=== PATIENT | female | born 1985 | race Two or more races ===

== ENCOUNTER 2016-09-17 21:40 | Emergency (ER) | payer SELFPAY ==
[~2016-09-17] VITALS: Ht 165.1 cm; Wt 63.5 kg
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
[2016-09-17 22:29] LABS: BASOPHILS % (AUTO) 0.9 % (0.0-2.0); EOSINOPHILS % (AUTO) 0.7 % (0.0-3.0); LYMPHOCYTES % (AUTO) 24.7 % (20.0-45.0); MEAN CORPUSCULAR HGB CONC 32.4 G/DL (32.0-36.0); MEAN CORPUSCULAR VOLUME 86 FL (80-99); MEAN PLATELET VOLUME 6.8 FL (6.5-10.1); MONOCYTES % (AUTO) 5.9 % (1.0-10.0); NEUTROPHILS % (AUTO) 67.7 % (45.0-75.0); PLATELET COUNT 200 K/UL (150-450); RED BLOOD COUNT 4.42 M/UL (4.20-5.40); RED CELL DISTRIBUTION WIDTH 12.2 % (11.6-14.8); WHITE BLOOD COUNT 6.5 K/UL (4.8-10.8)
[2016-09-17 22:38] LABS: ACETAMINOPHEN < 10 ug/mL (10-30); ALCOHOL < 10 mg/dL; ANION GAP 13 (5-15); CALCIUM 9.2 mg/dL (8.6-10.2); CARBON DIOXIDE 28 mEQ/L (20-30); CHLORIDE 98 mEQ/L (98-107); GLOMERULAR FILTRATION RATE > 60 mL/min (>60); HEMOLYSIS 8; POTASSIUM 4.3 mEQ/L (3.4-4.9); SODIUM 139 mEQ/L (135-145)
[2016-09-17 22:45] VITALS: BP 103/62
[2016-09-18 00:35] LABS: APPEARANCE,URINE CLEAR; KETONES,URINE NEGATIVE (NEGATIVE); LEUKOCYTE ESTERASE ,URINE 1+ (NEGATIVE); NITRITE,URINE NEGATIVE (NEGATIVE); PH,URINE 6 (4.5-8.0); PROTEIN,URINE 1+ (NEGATIVE); UROBILINOGEN,URINE NORMAL MG/DL (0.0-1.0)
[2016-09-18 00:47] VITALS: BP 105/63
[2016-09-18 01:04] LABS: BACTERIA,URINE OCCASIONAL /HPF; HYALINE CASTS, URINE 0-2 /LPF; RBC,URINE 0-2 /HPF (0 - 2); SQUAMOUS EPITHELIAL CELL,UR MODERATE /LPF (NONE/OCC); WBC,URINE 0-2 /HPF (0 - 2)
[2016-09-18] MEDS ORDERED: Ammonia Inhalant 0.33mL 1 Amp INH ONE (02:08)
[2016-09-18 02:15] VITALS: BP 134/87
[2016-09-18 04:30] VITALS: BP 103/57
[2016-09-18 04:31] VITALS: BP 103/57
== END 2016-09-18 04:32 | disposition home or self-care (01) ==
LOC: EDBD 21:40 → EMR 21:46 → EDBD 21:46 → EMR 09-18 04:32
DX: T50.901A Poisoning by unspecified drugs, medicaments and biological substances, accidental (unintentional), initial encounter (principal); Y92.9 Unspecified place or not applicable; F15.10 Other stimulant abuse, uncomplicated; R41.82 Altered mental status, unspecified
CPT/HCPCS: 36415; 80048; 80300; 81001; 81025; 85025; 99284; G0480; 80329

== ENCOUNTER 2018-06-16 08:07 | Inpatient (IN) | payer SELFPAY ==
[~2018-06-16] VITALS: Ht 157.5 cm; Wt 68.7 kg
[2018-06-16 08:07] VITALS: BP 129/89
[2018-06-16] MEDS ORDERED: cefTRIAXone 1 GM in NS 55 ML IV SCH (08:15)
[2018-06-16] MEDS ORDERED: Azithromycin 250mg tab PO ONE (08:15)
[2018-06-16 08:44] LABS: HEMATOCRIT 40.9 % (37.0-47.0); HEMOGLOBIN 13.6 G/DL (12.0-16.0); MEAN CORPUSCULAR VOLUME 83 FL (80-99); PLATELET COUNT 253 K/UL (150-450); RED CELL DISTRIBUTION WIDTH 11.5 % (11.6-14.8); WHITE BLOOD COUNT 15.2 K/UL (4.8-10.8)
[2018-06-16 08:48] LABS: APPEARANCE,URINE CLEAR; BILIRUBIN, URINE NEGATIVE (NEGATIVE); GLUCOSE, URINE (UA) NEGATIVE (NEGATIVE); KETONES,URINE NEGATIVE (NEGATIVE); LEUKOCYTE ESTERASE ,URINE NEGATIVE (NEGATIVE); NITRITE,URINE NEGATIVE (NEGATIVE); PH,URINE 5 (4.5-8.0); PROTEIN,URINE NEGATIVE (NEGATIVE); UROBILINOGEN,URINE NORMAL MG/DL (0.0-1.0)
[2018-06-16 08:57] LABS: ANION GAP 7 mmol/L (5-15); BLOOD UREA NITROGEN 11 mg/dL (7-18); CARBON DIOXIDE 29 MMOL/L (21-32); CHLORIDE 100 MMOL/L (98-107); CREATININE 0.8 MG/DL (0.55-1.30); POTASSIUM 3.4 MMOL/L (3.5-5.1); SODIUM 136 MMOL/L (136-145)
[2018-06-16 09:00] LABS: COLOR,URINE YELLOW
[2018-06-16] MEDS ORDERED: Ketorolac 30mg Inj IV ONE (09:00)
[2018-06-16 09:12] LABS: ALANINE AMINOTRANSFERASE 10 U/L (12-78); ALBUMIN 3.6 G/DL (3.4-5.0); ALBUMIN/GLOBULIN RATIO 0.8 (1.0-2.7); ALKALINE PHOSPHATASE 95 U/L (46-116); ASPARTATE AMINO TRANSFERASE 11 U/L (15-37)
--- NOTE | 2018-06-16 11:27 | Diagnostic Imaging Report ---
Indication: There is infiltrate in the right lung base. The left lung, bilateral pleural spaces are clear. Technique: One view of the chest Comparison: none Findings: There is infiltrate at the right lung base. Bilateral pleural spaces, left lung are clear. Impression: Positive for right basilar infiltrate, likely pneumonia Findings discussed by phone with Dr. Yuan in the emergency room at the time of interpretation
[2018-06-16 11:44] VITALS: BP 102/62
[2018-06-16 13:04] VITALS: BP 129/69
--- NOTE | 2018-06-16 13:06 | Emergency Room Report ---
History of Present Illness General Chief Complaint: Pain Source: Patient, EMS Present Illness HPI This patient is brought in by EMS. She complains of chest pain for the past 3 days. She has also had cough with sputum production. She states the pain is worse with deep breathing. She has subjective fever and chills. She denies abdominal pain. She denies nausea or vomiting. She has no other complaints. Allergies: Coded Allergies: No Known Allergies (Unverified , 09/17/16) Patient History Past Medical History: none Social History: Denies: smoking, alcohol use, drug use Last Menstrual Period: UNK Reviewed Nursing Documentation: PMH: Agreed; PSxH: Agreed Nursing Documentation-PMH Past Medical History: No Stated History Review of Systems All Other Systems: negative except mentioned in HPI Physical Exam Vital Signs Date Time Temp Pulse Resp B/P (MAP) Pulse Ox O2 Delivery O2 Flow Rate FiO2 06/16/18 07:56 99.8 92 19 129/89 98 Room Air 99.9 Sp02 EP Interpretation: reviewed, normal General Appearance: no apparent distress, alert, GCS 15, non-toxic Head: normocephalic, atraumatic Eyes: bilateral eye normal inspection, bilateral eye PERRL ENT: hearing grossly normal, normal pharynx, no angioedema, normal voice Neck: full range of motion, supple/symm/no masses Respiratory: chest non-tender, lungs clear, normal breath sounds, no respiratory distress, no retraction, no accessory muscle use, rhonchi, speaking full sentences Cardiovascular #1: regular rate, rhythm, no edema Gastrointestinal: normal bowel sounds, non tender, soft, non-distended, no guarding, no rebound Rectal: deferred Musculoskeletal: back normal, gait/station normal, normal range of motion, non- tender Neurologic: alert, oriented x3, responsive, motor strength/tone normal, sensory intact, speech normal Psychiatric: judgement/insight normal, memory normal, mood/affect normal, no suicidal/homicidal ideation Skin: normal color, no rash, warm/dry, well hydrated Medical Decision Making Diagnostic Impression: Primary Impression: Pneumonia ER Course This patient has pneumonia. She is given broad-spectrum antibiotics. She also has a lot of chest pain which is likely secondary to significant pneumonia found on her chest x-ray. She will be admitted for further monitoring, IV antibiotics and evaluation and treatment as an inpatient. Laboratory Tests Test 06/16/18 08:20 White Blood Count 15.2 K/UL (4.8-10.8) H Red Blood Count 4.90 M/UL (4.20-5.40) Hemoglobin 13.6 G/DL (12.0-16.0) Hematocrit 40.9 % (37.0-47.0) Mean Corpuscular Volume 83 FL (80-99) Mean Corpuscular Hemoglobin 27.7 PG (27.0-31.0) Mean Corpuscular Hemoglobin Concent 33.2 G/DL (32.0-36.0) Red Cell Distribution Width 11.5 % (11.6-14.8) L Platelet Count 253 K/UL (150-450) Mean Platelet Volume 7.5 FL (6.5-10.1) Neutrophils (%) (Auto) % (45.0-75.0) Lymphocytes (%) (Auto) % (20.0-45.0) Monocytes (%) (Auto) % (1.0-10.0) Eosinophils (%) (Auto) % (0.0-3.0) Basophils (%) (Auto) % (0.0-2.0) Differential Total Cells Counted 100 Neutrophils % (Manual) 85 % (45-75) H Lymphocytes % (Manual) 5 % (20-45) L Monocytes % (Manual) 7 % (1-10) Eosinophils % (Manual) 0 % (0-3) Basophils % (Manual) 0 % (0-2) Band Neutrophils 3 % (0-8) Platelet Estimate Adequate Platelet Morphology Normal Red Blood Cell Morphology Normal Urine Color Yellow Urine Appearance Clear Urine pH 5 (4.5-8.0) Urine Specific [place] 1.020 (1.005-1.035) Urine Protein Negative (NEGATIVE) Urine Glucose (UA) Negative (NEGATIVE) Urine Ketones Negative (NEGATIVE) Urine Blood 1+ (NEGATIVE) H Urine Nitrite Negative (NEGATIVE) Urine Bilirubin Negative (NEGATIVE) Urine Urobilinogen Normal MG/DL (0.0-1.0) Urine Leukocyte Esterase Negative (NEGATIVE) Urine RBC 0-2 /HPF (0 - 2) Urine WBC 0-2 /HPF (0 - 2) Urine Squamous Epithelial Cells Few /LPF (NONE/OCC) Urine Bacteria Few /HPF (NONE) Sodium Level 136 MMOL/L (136-145) Potassium Level 3.4 MMOL/L (3.5-5.1) L Chloride Level 100 MMOL/L (98-107) Carbon Dioxide Level 29 MMOL/L (21-32) Anion Gap 7 mmol/L (5-15) Blood Urea Nitrogen 11 mg/dL (7-18) Creatinine 0.8 MG/DL (0.55-1.30) Estimate Glomerular Filtration Rate > 60 mL/min (>60) Glucose Level 107 MG/DL (74-106) H Lactic Acid Level 0.90 mmol/L (0.4-2.0) Calcium Level 9.0 MG/DL (8.5-10.1) Total Bilirubin 1.0 MG/DL (0.2-1.0) Aspartate Amino Transferase (AST) 11 U/L (15-37) L Alanine Aminotransferase (ALT) 10 U/L (12-78) L Alkaline Phosphatase 95 U/L (46-116) Total Protein 8.1 G/DL (6.4-8.2) Albumin 3.6 G/DL (3.4-5.0) Globulin 4.5 g/dL Albumin/Globulin Ratio 0.8 (1.0-2.7) L EKG Diagnostic Results Rate: normal Rhythm: NSR ST Segments: no acute changes Rhythm Strip Diag. Results EP Interpretation: yes Rate: 80's Rhythm: NSR, no PVC's, no ectopy Chest X-Ray Diagnostic Results Chest X-Ray Diagnostic Results : Chest X-Ray Ordered: Yes # of Views/Limited/Complete: 1 View Indication: Chest Pain EP Interpretation: Yes Interpretation: other - RLL opacity Impression: Other - Pneumonia Electronically Signed by: More Last Vital Signs Date Time Temp Pulse Resp B/P (MAP) Pulse Ox O2 Delivery O2 Flow Rate FiO2 06/16/18 12:07 98.3 72 20 102/62 98 Room Air 98.3 Disposition: ADMITTED INPATIENT Condition: Serious Referrals: NOT CHOSEN SKYLAR/,REFERRING (PCP) Meghann Kennedy DO Jun 16, 2018 13:06
--- NOTE | 2018-06-16 13:12 | Cardiology Progress Note ---
Assessment/Plan Assessment/Plan The patient is seen and examined, full consult note will be dictated shortly. Objective Last 24 Hour Vital Signs Date Time Temp Pulse Resp B/P (MAP) Pulse Ox O2 Delivery O2 Flow Rate FiO2 06/16/18 13:04 97.7 83 19 129/69 (89) 100 97.7 06/16/18 12:07 98.3 72 20 102/62 98 Room Air 98.3 06/16/18 11:44 98.3 72 20 102/62 98 Room Air 98.3 06/16/18 09:47 98.3 06/16/18 09:17 99.9 06/16/18 08:07 99.9 19 129/89 98 Room Air 99.9 06/16/18 07:56 99.8 92 19 129/89 98 Room Air 99.9 Laboratory Tests Test 06/16/18 08:20 White Blood Count 15.2 K/UL (4.8-10.8) H Red Blood Count 4.90 M/UL (4.20-5.40) Hemoglobin 13.6 G/DL (12.0-16.0) Hematocrit 40.9 % (37.0-47.0) Mean Corpuscular Volume 83 FL (80-99) Mean Corpuscular Hemoglobin 27.7 PG (27.0-31.0) Mean Corpuscular Hemoglobin Concent 33.2 G/DL (32.0-36.0) Red Cell Distribution Width 11.5 % (11.6-14.8) L Platelet Count 253 K/UL (150-450) Mean Platelet Volume 7.5 FL (6.5-10.1) Neutrophils (%) (Auto) % (45.0-75.0) Lymphocytes (%) (Auto) % (20.0-45.0) Monocytes (%) (Auto) % (1.0-10.0) Eosinophils (%) (Auto) % (0.0-3.0) Basophils (%) (Auto) % (0.0-2.0) Differential Total Cells Counted 100 Neutrophils % (Manual) 85 % (45-75) H Lymphocytes % (Manual) 5 % (20-45) L Monocytes % (Manual) 7 % (1-10) Eosinophils % (Manual) 0 % (0-3) Basophils % (Manual) 0 % (0-2) Band Neutrophils 3 % (0-8) Platelet Estimate Adequate Platelet Morphology Normal Red Blood Cell Morphology Normal Urine Color Yellow Urine Appearance Clear Urine pH 5 (4.5-8.0) Urine Specific [place] 1.020 (1.005-1.035) Urine Protein Negative (NEGATIVE) Urine Glucose (UA) Negative (NEGATIVE) Urine Ketones Negative (NEGATIVE) Urine Blood 1+ (NEGATIVE) H Urine Nitrite Negative (NEGATIVE) Urine Bilirubin Negative (NEGATIVE) Urine Urobilinogen Normal MG/DL (0.0-1.0) Urine Leukocyte Esterase Negative (NEGATIVE) Urine RBC 0-2 /HPF (0 - 2) Urine WBC 0-2 /HPF (0 - 2) Urine Squamous Epithelial Cells Few /LPF (NONE/OCC) Urine Bacteria Few /HPF (NONE) Sodium Level 136 MMOL/L (136-145) Potassium Level 3.4 MMOL/L (3.5-5.1) L Chloride Level 100 MMOL/L (98-107) Carbon Dioxide Level 29 MMOL/L (21-32) Anion Gap 7 mmol/L (5-15) Blood Urea Nitrogen 11 mg/dL (7-18) Creatinine 0.8 MG/DL (0.55-1.30) Estimat Glomerular Filtration Rate > 60 mL/min (>60) Glucose Level 107 MG/DL (74-106) H Lactic Acid Level 0.90 mmol/L (0.4-2.0) Calcium Level 9.0 MG/DL (8.5-10.1) Total Bilirubin 1.0 MG/DL (0.2-1.0) Aspartate Amino Transf (AST/SGOT) 11 U/L (15-37) L Alanine Aminotransferase (ALT/SGPT) 10 U/L (12-78) L Alkaline Phosphatase 95 U/L (46-116) Total Protein 8.1 G/DL (6.4-8.2) Albumin 3.6 G/DL (3.4-5.0) Globulin 4.5 g/dL Albumin/Globulin Ratio 0.8 (1.0-2.7) L Maico Woods MD Jun 16, 2018 13:12
--- NOTE | 2018-06-16 13:51 | Consultation ---
Consult Note Assessment/Plan DICT # [id number] Gato Mccarthy MD Jun 16, 2018 13:51
--- NOTE | 2018-06-16 14:00 | Consultation ---
History of Present Illness General Date patient seen: Jun 16, 2018 Chief Complaint: Pain Present Illness HPI patient is brought in by EMS, She complains of chest pain. the pt was dozing off during the eval and was unable to provide hx. She knew the year however didn 't know the date. the pt was able to wake stated that she drinks alcohol recreationally. Denied drinking alcohol everyday, Allergies: Coded Allergies: No Known Allergies (Unverified , 09/17/16) Patient History History Provided By: Patient, Medical Record Healthcare decision maker Resuscitation status Advanced Directive on File Past Medical/Surgical History Past Medical/Surgical History: (1) Pneumonia Review of Systems Psychiatric: Reports: prior hx, anxiety, depressed feelings, emotional problems Physical Exam General Appearance: no apparent distress, lethargic Neurologic: depressed affect Last 24 Hour Vital Signs Date Time Temp Pulse Resp B/P (MAP) Pulse Ox O2 Delivery O2 Flow Rate FiO2 06/16/18 13:04 97.7 83 19 129/69 (89) 100 97.7 06/16/18 12:07 98.3 72 20 102/62 98 Room Air 98.3 06/16/18 11:44 98.3 72 20 102/62 98 Room Air 98.3 06/16/18 09:47 98.3 06/16/18 09:17 99.9 06/16/18 08:07 99.9 19 129/89 98 Room Air 99.9 06/16/18 07:56 99.8 92 19 129/89 98 Room Air 99.9 Laboratory Tests Test 06/16/18 08:20 White Blood Count 15.2 K/UL (4.8-10.8) H Red Blood Count 4.90 M/UL (4.20-5.40) Hemoglobin 13.6 G/DL (12.0-16.0) Hematocrit 40.9 % (37.0-47.0) Mean Corpuscular Volume 83 FL (80-99) Mean Corpuscular Hemoglobin 27.7 PG (27.0-31.0) Mean Corpuscular Hemoglobin Concent 33.2 G/DL (32.0-36.0) Red Cell Distribution Width 11.5 % (11.6-14.8) L Platelet Count 253 K/UL (150-450) Mean Platelet Volume 7.5 FL (6.5-10.1) Neutrophils (%) (Auto) % (45.0-75.0) Lymphocytes (%) (Auto) % (20.0-45.0) Monocytes (%) (Auto) % (1.0-10.0) Eosinophils (%) (Auto) % (0.0-3.0) Basophils (%) (Auto) % (0.0-2.0) Differential Total Cells Counted 100 Neutrophils % (Manual) 85 % (45-75) H Lymphocytes % (Manual) 5 % (20-45) L Monocytes % (Manual) 7 % (1-10) Eosinophils % (Manual) 0 % (0-3) Basophils % (Manual) 0 % (0-2) Band Neutrophils 3 % (0-8) Platelet Estimate Adequate Platelet Morphology Normal Red Blood Cell Morphology Normal Urine Color Yellow Urine Appearance Clear Urine pH 5 (4.5-8.0) Urine Specific [place] 1.020 (1.005-1.035) Urine Protein Negative (NEGATIVE) Urine Glucose (UA) Negative (NEGATIVE) Urine Ketones Negative (NEGATIVE) Urine Blood 1+ (NEGATIVE) H Urine Nitrite Negative (NEGATIVE) Urine Bilirubin Negative (NEGATIVE) Urine Urobilinogen Normal MG/DL (0.0-1.0) Urine Leukocyte Esterase Negative (NEGATIVE) Urine RBC 0-2 /HPF (0 - 2) Urine WBC 0-2 /HPF (0 - 2) Urine Squamous Epithelial Cells Few /LPF (NONE/OCC) Urine Bacteria Few /HPF (NONE) Sodium Level 136 MMOL/L (136-145) Potassium Level 3.4 MMOL/L (3.5-5.1) L Chloride Level 100 MMOL/L (98-107) Carbon Dioxide Level 29 MMOL/L (21-32) Anion Gap 7 mmol/L (5-15) Blood Urea Nitrogen 11 mg/dL (7-18) Creatinine 0.8 MG/DL (0.55-1.30) Estimat Glomerular Filtration Rate > 60 mL/min (>60) Glucose Level 107 MG/DL (74-106) H Lactic Acid Level 0.90 mmol/L (0.4-2.0) Calcium Level 9.0 MG/DL (8.5-10.1) Total Bilirubin 1.0 MG/DL (0.2-1.0) Aspartate Amino Transf (AST/SGOT) 11 U/L (15-37) L Alanine Aminotransferase (ALT/SGPT) 10 U/L (12-78) L Alkaline Phosphatase 95 U/L (46-116) Total Protein 8.1 G/DL (6.4-8.2) Albumin 3.6 G/DL (3.4-5.0) Globulin 4.5 g/dL Albumin/Globulin Ratio 0.8 (1.0-2.7) L Microbiology Date/Time Source Procedure Growth Status 06/16/18 11:45 Nasal Nares Influenza Types A,B Antigen (FABIO) - Final Complete Height (Feet): 5 Height (Inches): 2.00 Weight (Pounds): 160 Medications Current Medications Medications (Trade) Dose Ordered Sig/Philip Route PRN Reason Start Time Stop Time Status Last Admin Dose Admin Azithromycin 250 mg/Dextrose 275 ml @ 275 mls/hr Q24HRS IV 06/17/18 09:00 06/23/18 09:59 Ceftriaxone Sodium 1 gm/ Dextrose 55 ml @ 110 mls/hr Q24H IVPB 06/17/18 08:00 06/24/18 07:59 Heparin Sodium (Porcine) (Heparin 5000 units/ml) 5,000 units EVERY 12 HOURS SUBQ 06/16/18 21:00 07/16/18 20:59 Assessment/Plan Problem List: (1) Pneumonia ICD Codes: J18.9 - Pneumonia, unspecified organism SNOMED: 263825532 Status: stable Assessment/Plan encephalopathy due to toxic - no meds now -provided ro/Nataly Ojeda MD Jun 16, 2018 14:00
[2018-06-16] MEDS ORDERED: Albuterol ud Inhalation HHN PRN (14:30)
[2018-06-16 15:09] LABS: HEMATOCRIT 39.8 % (37.0-47.0); HEMOGLOBIN 13.4 G/DL (12.0-16.0); MEAN CORPUSCULAR VOLUME 84 FL (80-99); PLATELET COUNT 251 K/UL (150-450); RED BLOOD COUNT 4.75 M/UL (4.20-5.40); RED CELL DISTRIBUTION WIDTH 11.8 % (11.6-14.8); WHITE BLOOD COUNT 15.6 K/UL (4.8-10.8)
[2018-06-16 15:27] LABS: AMMONIA < 10 umol/L (11-32)
[2018-06-16 15:32] LABS: ALANINE AMINOTRANSFERASE 10 U/L (12-78); ALBUMIN 3.2 G/DL (3.4-5.0); ALBUMIN/GLOBULIN RATIO 0.8 (1.0-2.7); ALKALINE PHOSPHATASE 91 U/L (46-116); ANION GAP 10 mmol/L (5-15); ASPARTATE AMINO TRANSFERASE 10 U/L (15-37); BILIRUBIN,TOTAL 0.9 MG/DL (0.2-1.0); BLOOD UREA NITROGEN 12 mg/dL (7-18); CALCIUM 9.1 MG/DL (8.5-10.1); CARBON DIOXIDE 32 MMOL/L (21-32); CHLORIDE 98 MMOL/L (98-107); CREATININE 0.8 MG/DL (0.55-1.30); POTASSIUM 3.5 MMOL/L (3.5-5.1); SODIUM 139 MMOL/L (136-145)
[2018-06-16 20:00] VITALS: BP 95/61
[2018-06-16] MEDS: Heparin 5000 units/ml inj SUBQ SCH (21:36)
[2018-06-17] VITALS: BP 100/57
--- NOTE | 2018-06-17 01:15 | Consultation ---
DATE OF CONSULTATION: 06/16/2018 CARDIOLOGY CONSULTATION CONSULTING PHYSICIAN: Maico Woods M.D. REFERRING PHYSICIAN: Sheridan Dalton M.D. REASON FOR CONSULTATION: Management of chest pain. HISTORY OF PRESENT ILLNESS: The patient is a very unfortunate 32-year-old female, who presents to the hospital with pleuritic chest pain for about three days associated with productive cough and sputum. The patient had also subjective fever and chills. At the time of arrival to the hospital, blood pressure is 129/89, pulse of 92, respirations 19, O2 saturation was 98% on room air. The patient underwent workup in the emergency department including chest x-ray, which confirmed right lower lobe pneumonia. She was admitted to Med/Surg unit for further evaluation and management of pneumonia. Cardiology consultation was made for evaluation of chest pain. PAST MEDICAL HISTORY: None. PAST SURGICAL HISTORY: None. ALLERGIES: No known drug allergies. MEDICATIONS: List of medication showed no medication. SOCIAL HISTORY: Denies any tobacco, alcohol, or illicit drug use. FAMILY HISTORY: No premature coronary artery disease in first-degree relatives. REVIEW OF SYSTEMS: A 12-system review done and essentially negative except what was mentioned in history of present illness. PHYSICAL EXAMINATION: VITAL SIGNS: Blood pressure was 129/89, pulse of 92, respirations 19, O2 saturation 98% on room air. GENERAL: The patient is a very unfortunate 32-year-old female, in no apparent respiratory distress. Altered. HEENT: Atraumatic, normocephalic. Pupils are equal, round, and reactive to light and accommodation. Extraocular muscles intact. NECK: JVP less than 5 cm. No carotid bruit. Carotid upstrokes 2+ bilaterally. CARDIOVASCULAR: Normal S1, S2. Regular rate and rhythm. No murmurs, gallops, or rubs. PMI is at fourth intercostal space in the midclavicular line. LUNGS: Clear to auscultation bilaterally. ABDOMEN: Soft, nontender, and nondistended. No hepatosplenomegaly. Positive bowel sounds. EXTREMITIES: No evidence of edema, clubbing, or cyanosis. LABORATORY FINDINGS: WBC was 15.3, hemoglobin of 13.6, hematocrit 40.9, platelet count is 253,000. Sodium 136, potassium 3.4, chloride 100, bicarbonate 29, BUN of 11, creatinine 0.8, glucose is 107, calcium 9.0. ASSESSMENT AND PLAN: The patient is a very unfortunate 32-year-old female, seen in Cardiology consultation at request of Dr. Dalton. 1. Pleuritic chest pain, most likely due to right lower lobe pneumonia. No cardiac intervention is required. Continue with hydration, IV antibiotic therapy, and pulmonary toilet. 2. Right lower lobe pneumonia. I would like to thank Dr. Dalton for the courtesy of this consultation. Maico Woods M.D. DR: Idris JOB#: [id number] CC: FELICITA
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
[2018-06-17 04:00] VITALS: BP 106/53
[2018-06-17 08:00] VITALS: BP 114/59
[2018-06-17] MEDS ORDERED: cefTRIAXone 1 GM in D5W 55 ML IVPB SCH (08:00)
[2018-06-17] MEDS ORDERED: Azithromycin 250 MG in D5W 275 ML IV SCH (09:00)
[2018-06-17] MEDS: Heparin 5000 units/ml inj SUBQ SCH ×2 (09:00→20:39)
[2018-06-17] MEDS: Pantoprazole Inj IVP SCH (09:03)
--- NOTE | 2018-06-17 09:53 | Pulmonology Progress Note ---
Assessment/Plan Problems: (1) Pneumonia Assessment/Plan ASSESSMENT: The patient is a 32-year-old female with unknown past medical history, presenting with cough, congestion, and chest pain in the setting of a right lower lobe infiltrate with leukocytosis secondary to community- acquired pneumonia, possible aspiration. PROBLEM LIST: 1. Right lower lobe infiltrate, community-acquired pneumonia, possible aspiration. 2. Altered mental status, likely encephalopathy - RESOLVED 3. Atypical chest pain, likely 2/2 pleurisy in the setting of PNA 4. History of drug overdose in the past. Now with amphetamines on UTOx 5. Ice pick found in the patient's belonging. 6. Microscopic hematuria, possibly secondary to menses. TREATMENT PLAN: 1. Rocephin, azithromycin (D2), follow cultures, add Flagyl if any worsening respiratory infection. 2. Mucines, PRN Robitussin 3. PRN HHN's 4. Nicotine patch 5. Monitor MS, F/U psych recs 6. [employer] eval, aspiration precautions 7. D-dimer only minimally elevated, doubt VTE but will check Duplex bLE 8. DVT prophylaxis, heparin subcutaneous. 9. FC Subjective Allergies: Coded Allergies: No Known Allergies (Unverified , 09/17/16) Subjective AFVSS, stable on RA Utox + for amphetamines + cough, + SOB, + pleuritic R anterior lower CP, no FC Objective Last 24 Hour Vital Signs Date Time Temp Pulse Resp B/P (MAP) Pulse Ox O2 Delivery O2 Flow Rate FiO2 06/17/18 08:00 96.6 74 20 114/59 (77) 98 96.6 06/17/18 04:00 97.9 82 20 106/53 (70) 100 97.9 06/17/18 00:00 97.5 67 19 100/57 (71) 100 97.5 06/16/18 23:03 Room Air 06/16/18 20:00 97.9 85 19 95/61 (72) 100 97.9 06/16/18 13:04 97.7 83 19 129/69 (89) 100 97.7 06/16/18 12:16 Room Air 06/16/18 12:07 98.3 72 20 102/62 98 Room Air 98.3 06/16/18 11:44 98.3 72 20 102/62 98 Room Air 98.3 Intake and Output 06/16/18 06/17/18 19:00 07:00 Intake Total 55 ml 360 ml Balance 55 ml 360 ml Intake Oral 360 ml IV Total 55 ml # Voids 1 3 General Appearance: WD/WN, no acute distress HEENT: normocephalic, atraumatic, anicteric, mucous membranes moist Respiratory/Chest: chest wall non-tender, lungs clear, rhonchi - @ R base Cardiovascular: normal peripheral pulses, normal rate, regular rhythm Abdomen: normal bowel sounds, soft, non tender, no organomegaly, non distended , no mass Extremities: no cyanosis, no clubbing, no edema Microbiology Date/Time Source Procedure Growth Status 06/16/18 11:45 Nasal Nares Influenza Types A,B Antigen (FABIO) - Final Complete Laboratory Tests 06/16/18 13:40: Arterial Blood pH 7.484H, Arterial Blood Partial Pressure CO2 35.9, Arterial Blood Partial Pressure O2 141.1H, Arterial Blood HCO3 26.4H, Arterial Blood Oxygen Saturation 98.5, Arterial Blood Base Excess 3.1H, Karri Test Positive 06/16/18 13:44: Human Chorionic Gonadotropin, Qual Negative 06/16/18 14:25: White Blood Count 15.6H, Red Blood Count 4.75, Hemoglobin 13.4, Hematocrit 39.8 , Mean Corpuscular Volume 84, Mean Corpuscular Hemoglobin 28.1, Mean Corpuscular Hemoglobin Concent 33.5, Red Cell Distribution Width 11.8, Platelet Count 251, Mean Platelet Volume 7.4, Neutrophils (%) (Auto) , Lymphocytes (%) ( Auto) , Monocytes (%) (Auto) , Eosinophils (%) (Auto) , Basophils (%) (Auto) , Differential Total Cells Counted 100, Neutrophils % (Manual) 81H, Lymphocytes % (Manual) 6L, Monocytes % (Manual) 7, Eosinophils % (Manual) 0, Basophils % ( Manual) 1, Band Neutrophils 5, Platelet Estimate Adequate, Platelet Morphology Normal, Red Blood Cell Morphology Normal, D-Dimer 0.59H, Sodium Level 139, Potassium Level 3.5, Chloride Level 98, Carbon Dioxide Level 32, Anion Gap 10, Blood Urea Nitrogen 12, Creatinine 0.8, Estimat Glomerular Filtration Rate > 60 , Glucose Level 86, Lactic Acid Level 1.30, Calcium Level 9.1, Total Bilirubin 0.9, Aspartate Amino Transf (AST/SGOT) 10L, Alanine Aminotransferase (ALT/SGPT) 10L, Alkaline Phosphatase 91, Ammonia < 10L, Total Protein 7.0, Albumin 3.2L, Globulin 3.8, Albumin/Globulin Ratio 0.8L 06/16/18 16:23: Urine HCG, Qualitative Negative, Urine Opiates Screen Negative, Urine Barbiturates Screen Negative, Phencyclidine (PCP) Screen Negative, Urine Amphetamines Screen PositiveH, Urine Benzodiazepines Screen Negative, Urine Cocaine Screen Negative, Urine Marijuana (THC) Screen Negative 06/17/18 09:15: Hemoglobin A1c [Pending], Triglycerides Level [Pending], Cholesterol Level [ Pending], LDL Cholesterol [Pending], HDL Cholesterol [Pending], Cholesterol/HDL Ratio [Pending] Current Medications Medications (Trade) Dose Ordered Sig/Philip Route PRN Reason Start Time Stop Time Status Last Admin Dose Admin Acetaminophen (Tylenol) 650 mg Q4H PRN ORAL Mild Pain/Temp > 100.5 06/16/18 14:30 07/16/18 14:29 06/16/18 16:31 Albuterol Sulfate (Proventil) 2.5 mg Q4H PRN HHN Shortness of Breath 06/16/18 14:30 06/21/18 14:29 Azithromycin 250 mg/Dextrose 275 ml @ 275 mls/hr Q24HRS IV 06/17/18 09:00 06/23/18 09:59 Ceftriaxone Sodium 1 gm/ Dextrose 55 ml @ 110 mls/hr Q24H IVPB 06/17/18 08:00 06/24/18 07:59 06/17/18 09:03 Heparin Sodium (Porcine) (Heparin 5000 units/ml) 5,000 units EVERY 12 HOURS SUBQ 06/16/18 21:00 07/16/18 20:59 06/16/18 21:36 Pantoprazole (Protonix) 40 mg DAILY IVP 06/17/18 09:00 07/17/18 08:59 06/17/18 09:03 Gato Mccarthy MD Jun 17, 2018 09:53
[2018-06-17 09:55] LABS: CHOLESTEROL 112 MG/DL (< 200); HDL CHOLESTEROL 33 MG/DL (40-60); TRIGLYCERIDES 68 MG/DL (30-150)
[2018-06-17] MEDS ORDERED: guaiFENesin 100mg/5ml Liq ud ORAL PRN (09:56)
--- NOTE | 2018-06-17 10:12 | History & Physical ---
History and Physical History & Physicial seen and examined. Full dictation completed Sheridan Dalton MD Jun 17, 2018 10:12
[2018-06-17 12:00] VITALS: BP 120/68
--- NOTE | 2018-06-17 13:42 | General Progress Note ---
Assessment/Plan Problem List: (1) Pneumonia ICD Codes: J18.9 - Pneumonia, unspecified organism SNOMED: 227134521 Assessment/Plan encephalopathy resolved meth dependence not at imminent dts/dto the pt is not motivated to stop suing -no meds -will refer to substance use treatment -limited referral limited as effective substance use tx is expensive and pts motivation is required. Subjective Date patient seen: Jun 17, 2018 Allergies: Coded Allergies: No Known Allergies (Unverified , 09/17/16) All Systems: reviewed and negative except above Subjective the pt urine tox positive for meth. the phas hx of homelessness and drug use. the pt denied using drugs stated his last drink was several says ago but she doesn't drink everyday Objective Last 24 Hour Vital Signs Date Time Temp Pulse Resp B/P (MAP) Pulse Ox O2 Delivery O2 Flow Rate FiO2 06/17/18 12:00 97.7 76 20 120/68 (85) 98 97.7 06/17/18 09:00 Room Air 06/17/18 08:52 76 18 Room Air 21 06/17/18 08:00 96.6 74 20 114/59 (77) 98 96.6 06/17/18 04:00 97.9 82 20 106/53 (70) 100 97.9 06/17/18 00:00 97.5 67 19 100/57 (71) 100 97.5 06/16/18 23:03 Room Air 06/16/18 20:00 97.9 85 19 95/61 (72) 100 97.9 Intake and Output 06/16/18 06/17/18 19:00 07:00 Intake Total 55 ml 360 ml Balance 55 ml 360 ml Intake Oral 360 ml IV Total 55 ml # Voids 1 3 Laboratory Tests 06/16/18 13:40: Arterial Blood pH 7.484H, Arterial Blood Partial Pressure CO2 35.9, Arterial Blood Partial Pressure O2 141.1H, Arterial Blood HCO3 26.4H, Arterial Blood Oxygen Saturation 98.5, Arterial Blood Base Excess 3.1H, Karri Test Positive 06/16/18 13:44: Human Chorionic Gonadotropin, Qual Negative 06/16/18 14:25: White Blood Count 15.6H, Red Blood Count 4.75, Hemoglobin 13.4, Hematocrit 39.8 , Mean Corpuscular Volume 84, Mean Corpuscular Hemoglobin 28.1, Mean Corpuscular Hemoglobin Concent 33.5, Red Cell Distribution Width 11.8, Platelet Count 251, Mean Platelet Volume 7.4, Neutrophils (%) (Auto) , Lymphocytes (%) ( Auto) , Monocytes (%) (Auto) , Eosinophils (%) (Auto) , Basophils (%) (Auto) , Differential Total Cells Counted 100, Neutrophils % (Manual) 81H, Lymphocytes % (Manual) 6L, Monocytes % (Manual) 7, Eosinophils % (Manual) 0, Basophils % ( Manual) 1, Band Neutrophils 5, Platelet Estimate Adequate, Platelet Morphology Normal, Red Blood Cell Morphology Normal, D-Dimer 0.59H, Sodium Level 139, Potassium Level 3.5, Chloride Level 98, Carbon Dioxide Level 32, Anion Gap 10, Blood Urea Nitrogen 12, Creatinine 0.8, Estimat Glomerular Filtration Rate > 60 , Glucose Level 86, Lactic Acid Level 1.30, Calcium Level 9.1, Total Bilirubin 0.9, Aspartate Amino Transf (AST/SGOT) 10L, Alanine Aminotransferase (ALT/SGPT) 10L, Alkaline Phosphatase 91, Ammonia < 10L, Total Protein 7.0, Albumin 3.2L, Globulin 3.8, Albumin/Globulin Ratio 0.8L 06/16/18 16:23: Urine HCG, Qualitative Negative, Urine Opiates Screen Negative, Urine Barbiturates Screen Negative, Phencyclidine (PCP) Screen Negative, Urine Amphetamines Screen PositiveH, Urine Benzodiazepines Screen Negative, Urine Cocaine Screen Negative, Urine Marijuana (THC) Screen Negative 06/17/18 09:15: Hemoglobin A1c 5.5, Triglycerides Level 68, Cholesterol Level 112, LDL Cholesterol 54, HDL Cholesterol 33L, Cholesterol/HDL Ratio 3.4 Height (Feet): 5 Height (Inches): 2.00 Weight (Pounds): 160 General Appearance: no apparent distress, alert Neurologic: oriented x 3, responsive, depressed affect Nataly Arias MD Jun 17, 2018 13:42
[2018-06-17 15:47] VITALS: BP 115/56
--- NOTE | 2018-06-17 16:02 | Infectious Diseases Prog Note ---
Assessment/Plan Problems: (1) Aspiration pneumonia Assessment & Plan: due to altered mental status , will increase ceftriaxon dose and switch azithromyin to doxycycline to cover for possible PID. will order influenza swab (2) Fever Assessment & Plan: due to the above , continue antibiotics and tylenol (3) Vaginal discharge Assessment & Plan: will send chlamydia and gonorrhea screening , check for HIV and syphilis, patient will be on ceftriaxone and doxycycline empirically Subjective Allergies: Coded Allergies: No Known Allergies (Unverified , 09/17/16) Objective Vital Signs Last 24 Hour Vital Signs Date Time Temp Pulse Resp B/P (MAP) Pulse Ox O2 Delivery O2 Flow Rate FiO2 06/17/18 15:47 97.4 90 18 115/56 (75) 100 97.4 06/17/18 15:02 81 18 94 Room Air 21 06/17/18 14:49 81 18 94 Room Air 21 06/17/18 12:00 97.7 76 20 120/68 (85) 98 97.7 06/17/18 09:00 Room Air 06/17/18 08:52 76 18 Room Air 21 06/17/18 08:00 96.6 74 20 114/59 (77) 98 96.6 06/17/18 04:00 97.9 82 20 106/53 (70) 100 97.9 06/17/18 00:00 97.5 67 19 100/57 (71) 100 97.5 06/16/18 23:03 Room Air 06/16/18 20:00 97.9 85 19 95/61 (72) 100 97.9 Height (Feet): 5 Height (Inches): 2.00 Weight (Pounds): 160 Microbiology Date/Time Source Procedure Growth Status 06/16/18 11:45 Nasal Nares Influenza Types A,B Antigen (FABIO) - Final Complete Laboratory Tests Test 06/16/18 16:23 06/17/18 09:15 Urine HCG, Qualitative Negative (NEGATIVE) Urine Opiates Screen Negative (NEGATIVE) Urine Barbiturates Screen Negative (NEGATIVE) Phencyclidine (PCP) Screen Negative (NEGATIVE) Urine Amphetamines Screen Positive (NEGATIVE) H Urine Benzodiazepines Screen Negative (NEGATIVE) Urine Cocaine Screen Negative (NEGATIVE) Urine Marijuana (THC) Screen Negative (NEGATIVE) Hemoglobin A1c 5.5 % (4.3-6.0) Triglycerides Level 68 MG/DL (30-150) Cholesterol Level 112 MG/DL (< 200) LDL Cholesterol 54 mg/dL (<100) HDL Cholesterol 33 MG/DL (40-60) L Cholesterol/HDL Ratio 3.4 (3.3-4.4) Current Medications Medications (Trade) Dose Ordered Sig/Philip Route PRN Reason Start Time Stop Time Status Last Admin Dose Admin Acetaminophen (Tylenol) 650 mg Q4H PRN ORAL Mild Pain/Temp > 100.5 06/16/18 14:30 07/16/18 14:29 06/16/18 16:31 Albuterol Sulfate (Proventil) 2.5 mg Q4H PRN HHN Shortness of Breath 06/16/18 14:30 06/21/18 14:29 06/17/18 14:49 Azithromycin 250 mg/Dextrose 275 ml @ 275 mls/hr Q24HRS IV 06/17/18 09:00 06/23/18 09:59 06/17/18 10:01 Ceftriaxone Sodium 1 gm/ Dextrose 55 ml @ 110 mls/hr Q24H IVPB 06/17/18 08:00 06/24/18 07:59 06/17/18 09:03 Guaifenesin (Mucinex ER) 600 mg TWICE A DAY ORAL 06/17/18 18:00 07/17/18 17:59 Guaifenesin (Robitussin) 100 mg Q4H PRN ORAL For Cough 06/17/18 09:56 07/17/18 09:55 Heparin Sodium (Porcine) (Heparin 5000 units/ml) 5,000 units EVERY 12 HOURS SUBQ 06/16/18 21:00 07/16/18 20:59 06/16/18 21:36 Pantoprazole (Protonix) 40 mg DAILY IVP 06/17/18 09:00 07/17/18 08:59 06/17/18 09:03 Ethan Sanabria M.D. Jun 17, 2018 16:02
[2018-06-17] MEDS: guaiFENesin ER 600mg tab ORAL SCH (18:10)
--- NOTE | 2018-06-17 19:07 | Cardiology Report ---
APPROVED REPORT EKG Measurement Heart [id number] AL [id number] Normal sinus rhythm with sinus arrhythmia Normal ECG
[2018-06-17 20:00] VITALS: BP 102/56
--- NOTE | 2018-06-17 21:30 | History and Physical Report ---
DATE OF ADMISSION: 06/16/2018 SOURCE OF INFORMATION: The patient and EMR. HISTORY OF PRESENT ILLNESS: The patient is a 32-year-old female. The patient is homeless. The patient is complaining of cough and low-grade fever for the last couple of days. At the time of evaluation, the patient complaining of cough. Denies any blood-tinged sputum. Denies any abdominal pain, nausea, or vomitus. PAST MEDICAL HISTORY: COPD. ALLERGIES: NKDA. MEDICATIONS: Current hospital medications including, but not limited to azithromycin, ceftriaxone, albuterol, and Proventil. SOCIAL HISTORY: The patient is homeless. The patient has reportedly six children. Positive for heavy tobacco use approximately 40-pack per year. REVIEW OF SYSTEMS: All 12 elements of review of systems reviewed. Pertinent positives and negatives as above. PHYSICAL EXAMINATION: VITAL SIGNS: Blood pressure 110/80, temperature 99.9, and respiratory rate 20. Pulse ox 98% on room air. HEAD AND NECK: Atraumatic and normocephalic. CHEST: Positive for crackles in the right lower lobe, otherwise negative for wheezing, and positive for bronchial breathing sounds. ABDOMEN: Soft. No organomegaly. Bowel sounds normal. MUSCULOSKELETAL: No gross focal motor deficit. NEUROLOGIC: Awake, alert, and oriented x3. IMAGING: Chest x-ray, dated 06/16/2018 shows right basilar infiltrate. LABORATORY DATA: Labs dated 06/16/2018 shows WBC 15.6, hemoglobin 13.4, and platelet count 251,000. Sodium 139, potassium 3.9, BUN 12, and creatinine 0.8. AST and ALT are within normal limits. ASSESSMENT AND PLAN: 1. Community-acquired pneumonia. 2. Homelessness. 3. Gastrointestinal and deep venous thrombosis prophylaxis. PLAN OF CARE: We will continue with the current antibiotic regimen. Sheridan Dalton M.D. DR: FELICE JOB#: [id number] CC:
[2018-06-17] MEDS: Doxycycline Hyclate 100 MG in D5W 110 ML IV SCH (23:11)
--- NOTE | 2018-06-17 23:53 | Cardiology Progress Note ---
Assessment/Plan Assessment/Plan 1. Pleuritic chest pain, most likely due to right lower lobe pneumonia. No cardiac intervention is required. Continue with hydration, IV antibiotic therapy, and pulmonary toilet. 2. Right lower lobe pneumonia. 3. Amphetamine abuse 4. Altered mental status due to drugs, resolved. Subjective Subjective No cardiac events. Objective Last 24 Hour Vital Signs Date Time Temp Pulse Resp B/P (MAP) Pulse Ox O2 Delivery O2 Flow Rate FiO2 06/17/18 20:00 98.1 72 18 102/56 (71) 97 98.1 06/17/18 15:47 97.4 90 18 115/56 (75) 100 97.4 06/17/18 15:02 81 18 94 Room Air 21 06/17/18 14:49 81 18 94 Room Air 21 06/17/18 12:00 97.7 76 20 120/68 (85) 98 97.7 06/17/18 09:00 Room Air 06/17/18 08:52 76 18 Room Air 21 06/17/18 08:00 96.6 74 20 114/59 (77) 98 96.6 06/17/18 04:00 97.9 82 20 106/53 (70) 100 97.9 06/17/18 00:00 97.5 67 19 100/57 (71) 100 97.5 Intake and Output 06/16/18 06/17/18 19:00 07:00 Intake Total 55 ml 360 ml Balance 55 ml 360 ml Intake Oral 360 ml IV Total 55 ml # Voids 1 3 Laboratory Tests Test 06/17/18 09:15 06/17/18 16:55 Hemoglobin A1c 5.5 % (4.3-6.0) Triglycerides Level 68 MG/DL (30-150) Cholesterol Level 112 MG/DL (< 200) LDL Cholesterol 54 mg/dL (<100) HDL Cholesterol 33 MG/DL (40-60) L Cholesterol/HDL Ratio 3.4 (3.3-4.4) Rapid Plasma Reagin Pending Chlamydia trachomatis RNA Pending HIV (1&2) Antibody Rapid Negative (NEGATIVE) Microbiology Date/Time Source Procedure Growth Status 06/16/18 11:45 Nasal Nares Influenza Types A,B Antigen (FABIO) - Final Complete Objective HEENT: Atraumatic, normocephalic. Pupils are equal, round, and reactive to light and accommodation. Extraocular muscles intact. NECK: JVP less than 5 cm. No carotid bruit. Carotid upstrokes 2+ bilaterally. CARDIOVASCULAR: Normal S1, S2. Regular rate and rhythm. No murmurs, gallops, or rubs. PMI is at fourth intercostal space in the midclavicular line. LUNGS: Clear to auscultation bilaterally. ABDOMEN: Soft, nontender, and nondistended. No hepatosplenomegaly. Positive bowel sounds. EXTREMITIES: No evidence of edema, clubbing, or cyanosis. Maico Woods MD Jun 17, 2018 23:52
[2018-06-18] VITALS: BP 110/70
--- NOTE | 2018-06-18 01:15 | Consultation ---
DATE OF CONSULTATION: 06/17/2018 Infectious Disease Consultation CONSULTING PHYSICIAN: Ethan Sanabria M.D. REQUESTING PHYSICIAN: Sheridan Dalton M.D. REASON FOR CONSULTATION: Aspiration pneumonia, fever, and vaginal discharge. Recommendation for antibiotics treatment. HISTORY OF PRESENT ILLNESS: The patient is a 32-year-old female with unknown past medical history presented to the emergency room obtunded with cough, congestion, and sputum production. The patient had leukocytosis. Chest x-ray showed right lower lobe infiltrates, so she was started on ceftriaxone and azithromycin with Toradol and admitted to the hospital for further evaluation and management. Infectious Disease consultation was requested for antibiotics treatment and further care. The patient became more awake today and alert, but she was complaining of vaginal discharge, unclear whether she had previous history of infection or sexually transmitted disease, which the patient denied. No fever, but she had a chills couple of days before presentation. She had upper respiratory infection with flu for a week almost before her presentation. Denied any recent travel or sick contact. Chest x-ray confirmed right lower lobe infiltration, concerning for pneumonia. REVIEW OF SYSTEMS: A 14-point of systems reviewed were all negative apart from the one I mentioned above in my History and Physical. PAST MEDICAL HISTORY: Significant for drug overdose as per medical record. FAMILY HISTORY: Not contributory. SOCIAL HISTORY: The patient lives with family. Denied using any drugs, tobacco, or alcohol. ALLERGIES: She has no known drug allergy. MEDICATIONS: She is currently on ceftriaxone and azithromycin. For the rest of her medications, please refer to MARs. LABORATORY DATA: Showed white count of 15.6, hemoglobin of 13.4, and platelet count of 251. BUN of 12 and creatinine of 0.8. AST of 10 and ALT of 10. Urinalysis showed negative result for nitrate, leukocyte esterases, and bacteria. IMAGING: CT chest x-ray showed right basilar infiltrate, likely pneumonia. PHYSICAL EXAMINATION: VITAL SIGNS: Temperature 97.7 degrees, pulse 76, respirations 20, blood pressure 120/68, and pulse oximetry 98% on room air. GENERAL: A young female, up in bed, awake, alert, coughing, and congested, not in acute distress. HEENT: Normocephalic and atraumatic. Pupils reactive to light. Moist oral mucosa. No exudate. NECK: Supple. No lymphadenopathy. CARDIOVASCULAR: Regular rate and rhythm. No murmur. LUNGS: She had diminished breathing sound on the right lower lobe with crackles. No wheezing or rhonchi. Normal breathing efforts. ABDOMEN: Soft, nontender, and nondistended. Normal bowel sounds. No hepatosplenomegaly or ascites. EXTREMITIES: No edema or cyanosis. SKIN: No rash or hives. ASSESSMENT AND RECOMMENDATION: 1. Aspiration pneumonia due to altered mental status. We will increase ceftriaxone dose to 2 gram every 24 hours and switch azithromycin to doxycycline to cover for possible pelvic inflammatory disease. We will order influenza swab if not done in the emergency room to rule out influenza. 2. Fever due to the above. Continue antibiotics and Tylenol. 3. Vaginal discharge, rule out sexually transmitted disease. We will send Chlamydia and gonorrhea screening. Check for human immunodeficiency virus and syphilis. The patient will be on ceftriaxone and ____ empiric coverage. Thank you for the consult. ID will continue to follow. Ethan Sanabria M.D. DR: KARISHMA JOB#: [id number] CC:
[2018-06-18 04:00] VITALS: BP 120/72
[2018-06-18 08:00] VITALS: BP 125/72
[2018-06-18] MEDS: Pantoprazole Inj IVP SCH (09:10)
[2018-06-18] MEDS: cefTRIAXone 2 GM in D5W 55 ML IVPB SCH (09:10)
[2018-06-18] MEDS: guaiFENesin ER 600mg tab ORAL SCH ×2 (09:11→17:28)
[2018-06-18] MEDS: Heparin 5000 units/ml inj SUBQ SCH ×2 (09:11→20:35)
[2018-06-18] MEDS: Doxycycline Hyclate 100 MG in D5W 110 ML IV SCH ×2 (10:32→20:35)
[2018-06-18 12:00] VITALS: BP 112/69
--- NOTE | 2018-06-18 12:27 | General Progress Note ---
Assessment/Plan Assessment/Plan S: I am ok O: appears comfortable, denies any sob or cp PHYSICAL EXAMINATION: HEAD AND NECK: Atraumatic and normocephalic. CHEST: Positive for crackles in the right lower lobe, otherwise negative for wheezing, and positive for bronchial breathing sounds. ABDOMEN: Soft. No organomegaly. Bowel sounds normal. MUSCULOSKELETAL: No gross focal motor deficit. NEUROLOGIC: Awake, alert, and oriented x3. IMAGING: Chest x-ray, dated 06/16/2018 shows right basilar infiltrate. Meds: including Doxycycline and Ceftriaxon ASSESSMENT AND PLAN: 1. Community-acquired pneumonia. 2. Homelessness. 3. Gastrointestinal and deep venous thrombosis prophylaxis. PLAN OF CARE: change of abx per ID input will monitor, if remain asymptomatic, will DC tomorrow AM Subjective Allergies: Coded Allergies: No Known Allergies (Unverified , 09/17/16) Objective Last 24 Hour Vital Signs Date Time Temp Pulse Resp B/P (MAP) Pulse Ox O2 Delivery O2 Flow Rate FiO2 06/18/18 12:00 97.3 72 18 112/69 (83) 97 97.3 06/18/18 09:00 Room Air 06/18/18 08:00 97.7 86 18 125/72 (89) 97 97.7 06/18/18 07:05 72 20 Room Air 21 06/18/18 04:00 98.2 77 18 120/72 (88) 97 98.2 06/18/18 00:00 97.9 78 19 110/70 (83) 98 97.9 06/17/18 21:00 Room Air 06/17/18 20:00 98.1 72 18 102/56 (71) 97 98.1 06/17/18 19:02 74 20 Room Air 21 06/17/18 15:47 97.4 90 18 115/56 (75) 100 97.4 06/17/18 15:02 81 18 94 Room Air 21 06/17/18 14:49 81 18 94 Room Air 21 Intake and Output 06/17/18 06/18/18 19:00 07:00 Intake Total 950 ml 830 ml Balance 950 ml 830 ml Intake Oral 620 ml 720 ml IV Total 330 ml 110 ml # Voids 4 4 Laboratory Tests 06/17/18 16:55: Rapid Plasma Reagin Non reactive, Chlamydia trachomatis RNA [Pending], HIV (1&2 ) Antibody Rapid Negative Height (Feet): 5 Height (Inches): 2.00 Weight (Pounds): 151 Sheridan Dalton MD Jun 18, 2018 12:27
--- NOTE | 2018-06-18 12:41 | Pulmonology Progress Note ---
Assessment/Plan Problems: (1) Pneumonia Assessment/Plan ASSESSMENT: The patient is a 32-year-old female with unknown past medical history, presenting with cough, congestion, and chest pain in the setting of a right lower lobe infiltrate with leukocytosis secondary to community-acquired pneumonia, possible aspiration. PROBLEM LIST: 1. Right lower lobe infiltrate, community-acquired pneumonia, possible aspiration. 2. Altered mental status, likely encephalopathy - RESOLVED 3. Atypical chest pain, likely 2/2 pleurisy in the setting of PNA 4. History of drug overdose in the past. Now with amphetamines on UTOx 5. Ice pick found in the patient's belonging. 6. Microscopic hematuria, possibly secondary to menses. 7. Vaginal discharge TREATMENT PLAN: 1. Rocephin (D3), S/P azithromycin x 2 D, now on Doxycycline (D1) per ID, follow Cx's, GC and C 2. Mucines, PRN Robitussin 3. PRN HHN's 4. Nicotine patch 5. Monitor MS, F/U psych recs 6. Aspiration precautions 7. Infiltrate will need to be followed to radiographic resolution, - WILL NEED A REPEAT CXR IN 1 WEEK, D/W patient 8. DVT prophylaxis, heparin subcutaneous. 9. FC Subjective Allergies: Coded Allergies: No Known Allergies (Unverified , 09/17/16) Subjective AFVSS, stable on RA Less cough, less OSB, CP resolved New vaginal D/C, seen by ID, Azithro switched to Doxy, HIV and RPR neg, GC/C pending Objective Last 24 Hour Vital Signs Date Time Temp Pulse Resp B/P (MAP) Pulse Ox O2 Delivery O2 Flow Rate FiO2 06/18/18 12:00 97.3 72 18 112/69 (83) 97 97.3 06/18/18 09:00 Room Air 06/18/18 08:00 97.7 86 18 125/72 (89) 97 97.7 06/18/18 07:05 72 20 Room Air 21 06/18/18 04:00 98.2 77 18 120/72 (88) 97 98.2 06/18/18 00:00 97.9 78 19 110/70 (83) 98 97.9 06/17/18 21:00 Room Air 06/17/18 20:00 98.1 72 18 102/56 (71) 97 98.1 06/17/18 19:02 74 20 Room Air 21 06/17/18 15:47 97.4 90 18 115/56 (75) 100 97.4 06/17/18 15:02 81 18 94 Room Air 21 06/17/18 14:49 81 18 94 Room Air 21 Intake and Output 06/17/18 06/18/18 19:00 07:00 Intake Total 950 ml 830 ml Balance 950 ml 830 ml Intake Oral 620 ml 720 ml IV Total 330 ml 110 ml # Voids 4 4 General Appearance: WD/WN, no acute distress HEENT: normocephalic, atraumatic, anicteric, mucous membranes moist Respiratory/Chest: chest wall non-tender, lungs clear, normal breath sounds, no respiratory distress, no accessory muscle use Cardiovascular: normal peripheral pulses, normal rate, regular rhythm Abdomen: normal bowel sounds, soft, non tender, no organomegaly, non distended , no mass Extremities: no cyanosis, no clubbing, no edema Microbiology Date/Time Source Procedure Growth Status 06/16/18 08:30 Blood Blood Culture - Preliminary NO GROWTH AFTER 24 HOURS Resulted 06/16/18 08:20 Blood Blood Culture - Preliminary NO GROWTH AFTER 24 HOURS Resulted 06/16/18 11:45 Nasal Nares Influenza Types A,B Antigen (FABIO) - Final Complete Laboratory Tests 06/17/18 16:55: Rapid Plasma Reagin Non reactive, Chlamydia trachomatis RNA [Pending], HIV (1&2 ) Antibody Rapid Negative Current Medications Medications (Trade) Dose Ordered Sig/Philip Route PRN Reason Start Time Stop Time Status Last Admin Dose Admin Acetaminophen (Tylenol) 650 mg Q4H PRN ORAL Mild Pain/Temp > 100.5 06/16/18 14:30 07/16/18 14:29 06/16/18 16:31 Albuterol Sulfate (Proventil) 2.5 mg Q4H PRN HHN Shortness of Breath 06/16/18 14:30 06/21/18 14:29 06/17/18 14:49 Ceftriaxone Sodium 2 gm/ Dextrose 55 ml @ 110 mls/hr Q24H IVPB 06/18/18 09:00 06/25/18 08:59 06/18/18 09:10 Doxycycline Hyclate 100 mg/ Dextrose 110 ml @ 110 mls/hr Q12HR IV 06/17/18 21:00 06/24/18 20:59 06/18/18 10:32 Guaifenesin (Mucinex ER) 600 mg TWICE A DAY ORAL 06/17/18 18:00 07/17/18 17:59 06/18/18 09:11 Guaifenesin (Robitussin) 100 mg Q4H PRN ORAL For Cough 06/17/18 09:56 07/17/18 09:55 Heparin Sodium (Porcine) (Heparin 5000 units/ml) 5,000 units EVERY 12 HOURS SUBQ 06/16/18 21:00 07/16/18 20:59 06/18/18 09:11 Pantoprazole (Protonix) 40 mg DAILY IVP 06/17/18 09:00 07/17/18 08:59 06/18/18 09:10 Gato Mccarthy MD Jun 18, 2018 12:41
--- NOTE | 2018-06-18 13:47 | General Progress Note ---
Assessment/Plan Problem List: (1) Pneumonia ICD Codes: J18.9 - Pneumonia, unspecified organism SNOMED: 417238718 Assessment/Plan encephalopathy resolved meth dependence not at imminent dts/dto the pt is not motivated to stop suing -no meds -will refer to substance use treatment -limited referral limited as effective substance use tx is expensive and pts motivation is required. Subjective Date patient seen: Jun 18, 2018 Allergies: Coded Allergies: No Known Allergies (Unverified , 09/17/16) Subjective the pt is being treated for vaginal discharge/std Objective Last 24 Hour Vital Signs Date Time Temp Pulse Resp B/P (MAP) Pulse Ox O2 Delivery O2 Flow Rate FiO2 06/18/18 12:00 97.3 72 18 112/69 (83) 97 97.3 06/18/18 09:00 Room Air 06/18/18 08:00 97.7 86 18 125/72 (89) 97 97.7 06/18/18 07:05 72 20 Room Air 21 06/18/18 04:00 98.2 77 18 120/72 (88) 97 98.2 06/18/18 00:00 97.9 78 19 110/70 (83) 98 97.9 06/17/18 21:00 Room Air 06/17/18 20:00 98.1 72 18 102/56 (71) 97 98.1 06/17/18 19:02 74 20 Room Air 21 06/17/18 15:47 97.4 90 18 115/56 (75) 100 97.4 06/17/18 15:02 81 18 94 Room Air 21 06/17/18 14:49 81 18 94 Room Air 21 Intake and Output 06/17/18 06/18/18 19:00 07:00 Intake Total 950 ml 830 ml Balance 950 ml 830 ml Intake Oral 620 ml 720 ml IV Total 330 ml 110 ml # Voids 4 4 Laboratory Tests 06/17/18 16:55: Rapid Plasma Reagin Non reactive, Chlamydia trachomatis RNA [Pending], HIV (1&2 ) Antibody Rapid Negative Height (Feet): 5 Height (Inches): 2.00 Weight (Pounds): 151 General Appearance: no apparent distress, alert Neurologic: oriented x 3, responsive, depressed affect Nataly Arias MD Jun 18, 2018 13:47
--- NOTE | 2018-06-18 15:29 | Infectious Diseases Prog Note ---
Assessment/Plan Problems: (1) Aspiration pneumonia Assessment & Plan: due to altered mental status , continue ceftriaxon and doxycycline to cover also for possible PID. chlamydia and gonorrhea are pending (2) Fever Assessment & Plan: due to the above , continue antibiotics and tylenol (3) Vaginal discharge Assessment & Plan: await chlamydia and gonorrhea screening , screening for HIV and syphilis is negative , patient will be on ceftriaxone and doxycycline empirically Subjective Constitutional: Reports: no symptoms HEENT: Reports: no symptoms Respiratory: Reports: productive cough Breasts: Reports: no symptoms Cardiovascular: Reports: no symptoms Gastrointestinal/Abdominal: Reports: no symptoms Genitourinary: Reports: no symptoms Neurologic: Reports: no symptoms Psychiatric: Reports: no symptoms Skin: Reports: no symptoms Endocrine: Reports: no symptoms Hematologic: Reports: no symptoms Musculoskeletal: Reports: no symptoms Allergies: Coded Allergies: No Known Allergies (Unverified , 09/17/16) Objective Vital Signs Last 24 Hour Vital Signs Date Time Temp Pulse Resp B/P (MAP) Pulse Ox O2 Delivery O2 Flow Rate FiO2 06/18/18 12:00 97.3 72 18 112/69 (83) 97 97.3 06/18/18 09:00 Room Air 06/18/18 08:00 97.7 86 18 125/72 (89) 97 97.7 06/18/18 07:05 72 20 Room Air 21 06/18/18 04:00 98.2 77 18 120/72 (88) 97 98.2 06/18/18 00:00 97.9 78 19 110/70 (83) 98 97.9 06/17/18 21:00 Room Air 06/17/18 20:00 98.1 72 18 102/56 (71) 97 98.1 06/17/18 19:02 74 20 Room Air 21 06/17/18 15:47 97.4 90 18 115/56 (75) 100 97.4 Height (Feet): 5 Height (Inches): 2.00 Weight (Pounds): 151 General Appearance: WD/WN, no acute distress HEENT: normocephalic, atraumatic, anicteric, mucous membranes moist, PERRL Respiratory/Chest: chest wall non-tender, no respiratory distress, no accessory muscle use, decreased breath sounds, crackles/rales Cardiovascular: normal peripheral pulses, normal rate, regular rhythm, no gallop/murmur, no JVD Abdomen: normal bowel sounds, soft, non tender, no organomegaly, non distended , no mass, no scars Extremities: no cyanosis, no clubbing Skin: no rash, no lesions, no ulcers Neurologic/Psychiatric: alert, responsive Microbiology Date/Time Source Procedure Growth Status 06/16/18 08:30 Blood Blood Culture - Preliminary NO GROWTH AFTER 24 HOURS Resulted 06/16/18 08:20 Blood Blood Culture - Preliminary NO GROWTH AFTER 24 HOURS Resulted 06/16/18 11:45 Nasal Nares Influenza Types A,B Antigen (FABIO) - Final Complete Laboratory Tests Test 06/17/18 16:55 Rapid Plasma Reagin Non reactive (Non Reactive) Chlamydia trachomatis RNA Pending HIV (1&2) Antibody Rapid Negative (NEGATIVE) Current Medications Medications (Trade) Dose Ordered Sig/Philip Route PRN Reason Start Time Stop Time Status Last Admin Dose Admin Acetaminophen (Tylenol) 650 mg Q4H PRN ORAL Mild Pain/Temp > 100.5 06/16/18 14:30 07/16/18 14:29 06/16/18 16:31 Albuterol Sulfate (Proventil) 2.5 mg Q4H PRN HHN Shortness of Breath 06/16/18 14:30 06/21/18 14:29 06/17/18 14:49 Ceftriaxone Sodium 2 gm/ Dextrose 55 ml @ 110 mls/hr Q24H IVPB 06/18/18 09:00 06/25/18 08:59 06/18/18 09:10 Doxycycline Hyclate 100 mg/ Dextrose 110 ml @ 110 mls/hr Q12HR IV 06/17/18 21:00 06/24/18 20:59 06/18/18 10:32 Guaifenesin (Mucinex ER) 600 mg TWICE A DAY ORAL 06/17/18 18:00 07/17/18 17:59 06/18/18 09:11 Guaifenesin (Robitussin) 100 mg Q4H PRN ORAL For Cough 06/17/18 09:56 07/17/18 09:55 Heparin Sodium (Porcine) (Heparin 5000 units/ml) 5,000 units EVERY 12 HOURS SUBQ 06/16/18 21:00 07/16/18 20:59 06/18/18 09:11 Pantoprazole (Protonix) 40 mg DAILY IVP 06/17/18 09:00 07/17/18 08:59 06/18/18 09:10 Ethan Sanabria M.D. Jun 18, 2018 15:29
[2018-06-18 16:00] VITALS: BP 123/87
--- NOTE | 2018-06-18 16:10 | Diagnostic Imaging Report ---
APPROVED REPORT CPT Code: 98705 Present Symptoms Lower Extremity Pain: Bilateral BILATERAL: Imaging reveals a patent deep venous system bilaterally. There is no evidence of thrombus within the femoral, popliteal or tibial segments. The greater saphenous veins are also within normal limits. Doppler indicates normal spontaneous flow within these segments.
[2018-06-18 20:00] VITALS: BP 126/76
--- NOTE | 2018-06-18 23:59 | Cardiology Progress Note ---
Assessment/Plan Assessment/Plan 1. Pleuritic chest pain, most likely due to right lower lobe pneumonia. No cardiac intervention is required. Pulmonary optimization. 2. Right lower lobe pneumonia, continue IV Abx. 3. Amphetamine abuse 4. Altered mental status due to drugs, resolved. Subjective Subjective No cardiac events. Objective Last 24 Hour Vital Signs Date Time Temp Pulse Resp B/P (MAP) Pulse Ox O2 Delivery O2 Flow Rate FiO2 06/18/18 20:24 85 18 Room Air 21 06/18/18 20:11 Room Air 06/18/18 20:00 97.8 73 16 126/76 (93) 99 97.8 06/18/18 16:00 98.7 88 18 123/87 (99) 97 98.7 06/18/18 12:00 97.3 72 18 112/69 (83) 97 97.3 06/18/18 09:00 Room Air 06/18/18 08:00 97.7 86 18 125/72 (89) 97 97.7 06/18/18 07:05 72 20 Room Air 21 06/18/18 04:00 98.2 77 18 120/72 (88) 97 98.2 06/18/18 00:00 97.9 78 19 110/70 (83) 98 97.9 Intake and Output 06/17/18 06/18/18 19:00 07:00 Intake Total 950 ml 830 ml Balance 950 ml 830 ml Intake Oral 620 ml 720 ml IV Total 330 ml 110 ml # Voids 4 4 Microbiology Date/Time Source Procedure Growth Status 06/16/18 08:30 Blood Blood Culture - Preliminary NO GROWTH AFTER 24 HOURS Resulted 06/16/18 08:20 Blood Blood Culture - Preliminary NO GROWTH AFTER 24 HOURS Resulted 06/16/18 11:45 Nasal Nares Influenza Types A,B Antigen (FABIO) - Final Complete Objective HEENT: Atraumatic, normocephalic. Pupils are equal, round, and reactive to light and accommodation. Extraocular muscles intact. NECK: JVP less than 5 cm. No carotid bruit. Carotid upstrokes 2+ bilaterally. CARDIOVASCULAR: Normal S1, S2. Regular rate and rhythm. No murmurs, gallops, or rubs. PMI is at fourth intercostal space in the midclavicular line. LUNGS: Clear to auscultation bilaterally. ABDOMEN: Soft, nontender, and nondistended. No hepatosplenomegaly. Positive bowel sounds. EXTREMITIES: No evidence of edema, clubbing, or cyanosis. Maico Woods MD Jun 18, 2018 23:59
[2018-06-19] VITALS: BP 103/53
[2018-06-19] MEDS ORDERED: Levofloxacin 500mg tab ORAL SCH
[2018-06-19 04:00] VITALS: BP 129/79
[2018-06-19 08:00] VITALS: BP 125/79
[2018-06-19] MEDS: guaiFENesin ER 600mg tab ORAL SCH (09:10)
[2018-06-19] MEDS: cefTRIAXone 2 GM in D5W 55 ML IVPB SCH (09:10)
[2018-06-19] MEDS: Pantoprazole Inj IVP SCH (09:10)
[2018-06-19] MEDS: Heparin 5000 units/ml inj SUBQ SCH (09:11)
--- NOTE | 2018-06-19 10:27 | General Progress Note ---
Assessment/Plan Assessment/Plan S: I am ok O: appears comfortable, denies any sob or cp PHYSICAL EXAMINATION: HEAD AND NECK: Atraumatic and normocephalic. CHEST: Positive for crackles in the right lower lobe, otherwise negative for wheezing, and positive for bronchial breathing sounds. ABDOMEN: Soft. No organomegaly. Bowel sounds normal. MUSCULOSKELETAL: No gross focal motor deficit. NEUROLOGIC: Awake, alert, and oriented x3. IMAGING: Chest x-ray, dated 06/16/2018 shows right basilar infiltrate. Meds: including Doxycycline and Ceftriaxon ASSESSMENT AND PLAN: 1. Community-acquired pneumonia. 2. Homelessness. 3. Gastrointestinal and deep venous thrombosis prophylaxis. PLAN OF CARE: change of abx per ID input Once clear by Pulmonary, may followup as outpatient Subjective Allergies: Coded Allergies: No Known Allergies (Unverified , 09/17/16) Objective Last 24 Hour Vital Signs Date Time Temp Pulse Resp B/P (MAP) Pulse Ox O2 Delivery O2 Flow Rate FiO2 06/19/18 08:29 78 18 Room Air 21 06/19/18 08:00 97.9 74 18 125/79 (94) 99 97.9 06/19/18 04:00 97.9 71 18 129/79 (96) 99 97.9 06/19/18 00:00 98.0 68 20 103/53 (70) 99 98.0 06/18/18 20:24 85 18 Room Air 21 06/18/18 20:11 Room Air 06/18/18 20:00 97.8 73 16 126/76 (93) 99 97.8 06/18/18 16:00 98.7 88 18 123/87 (99) 97 98.7 06/18/18 12:00 97.3 72 18 112/69 (83) 97 97.3 Intake and Output 06/18/18 06/19/18 19:00 07:00 Intake Total 1000 ml 590 ml Balance 1000 ml 590 ml Intake Oral 1000 ml IV Total 110 ml Other 480 ml # Voids 4 2 Height (Feet): 5 Height (Inches): 2.00 Weight (Pounds): 151 Sheridan Dalton MD Jun 19, 2018 10:27
--- NOTE | 2018-06-19 10:32 | Pulmonology Progress Note ---
Assessment/Plan Assessment/Plan Assessment/Plan Problems: (1) Pneumonia Assessment/Plan ASSESSMENT: The patient is a 32-year-old female with unknown past medical history, presenting with cough, congestion, and chest pain in the setting of a right lower lobe infiltrate with leukocytosis secondary to community-acquired pneumonia, possible aspiration. No new complaints, labs noted PROBLEM LIST: 1. Right lower lobe infiltrate, community-acquired pneumonia, possible aspiration. 2. Altered mental status, likely encephalopathy - RESOLVED 3. Atypical chest pain, likely 2/2 pleurisy in the setting of PNA 4. History of drug overdose in the past. Now with amphetamines on UTOx 5. Ice pick found in the patient's belonging. 6. Microscopic hematuria, possibly secondary to menses. 7. Vaginal discharge TREATMENT PLAN: 1. Rocephin (D3), S/P azithromycin x 2 D, now on Doxycycline (D1) per ID, follow Cx's, GC and C 2. Mucines, PRN Robitussin 3. PRN HHN's 4. Nicotine patch 5. Monitor MS, F/U psych recs 6. Aspiration precautions 7. Infiltrate will need to be followed to radiographic resolution, - WILL NEED A REPEAT CXR IN 1 WEEK, D/W patient 8. DVT prophylaxis, heparin subcutaneous. 9. FC Subjective Allergies: Coded Allergies: No Known Allergies (Unverified , 09/17/16) Subjective AFVSS, stable on RA Less cough, less OSB, CP resolved New vaginal D/C, seen by ID, Azithro switched to Doxy, HIV and RPR neg, GC/C pending Objective Last 24 Hour Vital Signs Date Time Temp Pulse Resp B/P (MAP) Pulse Ox O2 Delivery O2 Flow Rate FiO2 06/18/18 12:00 97.3 72 18 112/69 (83) 97 97.3 06/18/18 09:00 Room Air 06/18/18 08:00 97.7 86 18 125/72 (89) 97 97.7 06/18/18 07:05 72 20 Room Air 21 06/18/18 04:00 98.2 77 18 120/72 (88) 97 98.2 06/18/18 00:00 97.9 78 19 110/70 (83) 98 97.9 06/17/18 21:00 Room Air 06/17/18 20:00 98.1 72 18 102/56 (71) 97 98.1 06/17/18 19:02 74 20 Room Air 21 06/17/18 15:47 97.4 90 18 115/56 (75) 100 97.4 06/17/18 15:02 81 18 94 Room Air 21 06/17/18 14:49 81 18 94 Room Air 21 Intake and Output 06/17/18 06/18/18 19:00 07:00 Intake Total 950 ml 830 ml Balance 950 ml 830 ml Intake Oral 620 ml 720 ml IV Total 330 ml 110 ml # Voids 4 4 General Appearance: WD/WN, no acute distress HEENT: normocephalic, atraumatic, anicteric, mucous membranes moist Respiratory/Chest: chest wall non-tender, lungs clear, normal breath sounds, no respiratory distress, no accessory muscle use Cardiovascular: normal peripheral pulses, normal rate, regular rhythm Abdomen: normal bowel sounds, soft, non tender, no organomegaly, non distended , no mass Extremities: no cyanosis, no clubbing, no edema Microbiology Date/Time Source Procedure Growth Status 06/16/18 08:30 Blood Blood Culture - Preliminary NO GROWTH AFTER 24 HOURS Resulted 06/16/18 08:20 Blood Blood Culture - Preliminary NO GROWTH AFTER 24 HOURS Resulted 06/16/18 11:45 Nasal Nares Influenza Types A,B Antigen (FABIO) - Final Complete Laboratory Tests 06/17/18 16:55: Rapid Plasma Reagin Non reactive, Chlamydia trachomatis RNA [Pending], HIV (1&2 ) Antibody Rapid Negative Current Medications Medications (Trade) Dose Ordered Sig/Philip Route PRN Reason Start Time Stop Time Status Last Admin Dose Admin Acetaminophen (Tylenol) 650 mg Q4H PRN ORAL Mild Pain/Temp > 100.5 06/16/18 14:30 07/16/18 14:29 06/16/18 16:31 Albuterol Sulfate (Proventil) 2.5 mg Q4H PRN HHN Shortness of Breath 06/16/18 14:30 06/21/18 14:29 06/17/18 14:49 Ceftriaxone Sodium 2 gm/ Dextrose 55 ml @ 110 mls/hr Q24H IVPB 06/18/18 09:00 06/25/18 08:59 06/18/18 09:10 Doxycycline Hyclate 100 mg/ Dextrose 110 ml @ 110 mls/hr Q12HR IV 06/17/18 21:00 06/24/18 20:59 06/18/18 10:32 Guaifenesin (Mucinex ER) 600 mg TWICE A DAY ORAL 06/17/18 18:00 07/17/18 17:59 06/18/18 09:11 Guaifenesin (Robitussin) 100 mg Q4H PRN ORAL For Cough 06/17/18 09:56 07/17/18 09:55 Heparin Sodium (Porcine) (Heparin 5000 units/ml) 5,000 units EVERY 12 HOURS SUBQ 06/16/18 21:00 07/16/18 20:59 06/18/18 09:11 Pantoprazole (Protonix) 40 mg DAILY IVP 06/17/18 09:00 07/17/18 08:59 06/18/18 09:10 Subjective ROS Limited/Unobtainable: No Allergies: Coded Allergies: No Known Allergies (Unverified , 09/17/16) Objective Last 24 Hour Vital Signs Date Time Temp Pulse Resp B/P (MAP) Pulse Ox O2 Delivery O2 Flow Rate FiO2 06/19/18 09:00 Room Air 06/19/18 08:29 78 18 Room Air 21 06/19/18 08:00 97.9 74 18 125/79 (94) 99 97.9 06/19/18 04:00 97.9 71 18 129/79 (96) 99 97.9 06/19/18 00:00 98.0 68 20 103/53 (70) 99 98.0 06/18/18 20:24 85 18 Room Air 21 06/18/18 20:11 Room Air 06/18/18 20:00 97.8 73 16 126/76 (93) 99 97.8 06/18/18 16:00 98.7 88 18 123/87 (99) 97 98.7 06/18/18 12:00 97.3 72 18 112/69 (83) 97 97.3 Intake and Output 06/18/18 06/19/18 19:00 07:00 Intake Total 1000 ml 590 ml Balance 1000 ml 590 ml Intake Oral 1000 ml IV Total 110 ml Other 480 ml # Voids 4 2 Microbiology Date/Time Source Procedure Growth Status 06/16/18 11:45 Nasal Nares Influenza Types A,B Antigen (FABIO) - Final Complete Current Medications Medications (Trade) Dose Ordered Sig/Philip Route PRN Reason Start Time Stop Time Status Last Admin Dose Admin Acetaminophen (Tylenol) 650 mg Q4H PRN ORAL Mild Pain/Temp > 100.5 06/16/18 14:30 07/16/18 14:29 06/16/18 16:31 Albuterol Sulfate (Proventil) 2.5 mg Q4H PRN HHN Shortness of Breath 06/16/18 14:30 06/21/18 14:29 06/17/18 14:49 Ceftriaxone Sodium 2 gm/ Dextrose 55 ml @ 110 mls/hr Q24H IVPB 06/18/18 09:00 06/25/18 08:59 06/19/18 09:10 Doxycycline Hyclate 100 mg/ Dextrose 110 ml @ 110 mls/hr Q12HR IV 06/17/18 21:00 06/24/18 20:59 06/18/18 20:35 Guaifenesin (Mucinex ER) 600 mg TWICE A DAY ORAL 06/17/18 18:00 07/17/18 17:59 06/19/18 09:10 Guaifenesin (Robitussin) 100 mg Q4H PRN ORAL For Cough 06/17/18 09:56 07/17/18 09:55 Heparin Sodium (Porcine) (Heparin 5000 units/ml) 5,000 units EVERY 12 HOURS SUBQ 06/16/18 21:00 07/16/18 20:59 06/19/18 09:11 Pantoprazole (Protonix) 40 mg DAILY IVP 06/17/18 09:00 07/17/18 08:59 06/19/18 09:10 Morteza Wan MD Jun 19, 2018 10:32
[2018-06-19] MEDS: Doxycycline Hyclate 100 MG in D5W 110 ML IV SCH (11:37)
[2018-06-19 12:00] VITALS: BP 127/79
[2018-06-19] MEDS ORDERED: LEVAQUIN750 MG ORAL (13:02)
[2018-06-19] MEDS ORDERED: Tubing IV Secondary IV ONE (15:51)
[2018-06-19] MEDS ORDERED: NS 500ML ONE (15:51)
--- NOTE | 2018-06-19 22:27 | General Progress Note ---
Assessment/Plan Problem List: (1) Pneumonia ICD Codes: J18.9 - Pneumonia, unspecified organism SNOMED: [id number] Assessment/Plan encephalopathy resolved meth dependence not at imminent dts/dto the pt is not motivated to stop suing -no meds -will refer to substance use treatment -limited referral limited as effective substance use tx is expensive and pts motivation is required. Subjective Date patient seen: Jun 19, 2018 Neurologic/Psychiatric: Reports: anxiety, depressed, emotional problems Allergies: Coded Allergies: No Known Allergies (Unverified , 09/17/16) Subjective the pt is well Objective Last 24 Hour Vital Signs Date Time Temp Pulse Resp B/P (MAP) Pulse Ox O2 Delivery O2 Flow Rate FiO2 06/19/18 12:00 97.9 81 18 127/79 (95) 99 97.9 06/19/18 09:00 Room Air 06/19/18 08:29 78 18 Room Air 21 06/19/18 08:00 97.9 74 18 125/79 (94) 99 97.9 06/19/18 04:00 97.9 71 18 129/79 (96) 99 97.9 06/19/18 00:00 98.0 68 20 103/53 (70) 99 98.0 Intake and Output 06/18/18 06/19/18 19:00 07:00 Intake Total 1000 ml 590 ml Balance 1000 ml 590 ml Intake Oral 1000 ml IV Total 110 ml Other 480 ml # Voids 4 2 Height (Feet): 5 Height (Inches): 2.00 Weight (Pounds): 151 Nataly Arias MD Jun 19, 2018 22:27
--- NOTE | 2018-06-20 11:37 | Discharge Summary ---
Discharge Summary Discharge Summary _ DATE OF ADMISSION: 06/16/2018 DATE OF DISCHARGE: 06/19/2018 CONSULTANTS: Dr. Nataly Woods BRIEF HOSPITAL COURSE: Patient is a 32-year-old female, who is homeless, presented to ED via EMS complaining of cough and low-grade fever for past couple of days. She denied any blood-tinged sputum, denied abdominal pain, nausea or vomiting. She has medical history significant for COPD. On evaluation at ED, vital signs were stable. She was saturating 98% on room air. Blood work showed leukocytosis, WBC was increased to 15. Hemoglobin and hematocrit were stable. Electrolytes were normal. She had an EKG done that showed normal acute changes. Chest x-ray showed right basal infiltrate, likely pneumonia. She was given Rocephin and azithromycin. She was given Toradol. Patient was then admitted for further management. On arrival to floor, patient was obtunded. A stat ammonia and ABG was ordered. Results were negative. Urine toxicology was positive for amphetamines. She was placed on nothing by mouth until fully awake. Patient was more awake. She complained of pleuritic chest pain, most likely due to lower lobe pneumonia. No cardiac intervention was required per draw string knotter recommendation. ID was consulted. Patient was having low-grade temp. Influenza A and B were negative. Ceftriaxone was increased to 2 g IV. She complained of vaginal discharge. Azithromycin was switched to doxycycline to cover for pelvic inflammatory disease. HIV screen was negative. Syphilis nonreactive. Chlamydia and gonorrhea test is still pending. She was given breathing treatment, Mucinex and Robitussin. She was placed on nicotine patch. Patient encephalopathy resolved and was assessed not to be an imminent danger to self or to others. She was strongly counseled against meth use. However patient is not motivated to stop. She was breathing better and was saturating well on room air. Social service was called in to aid with placement. Patient declined. She was eventually cleared for discharge home, to continue with oral antibiotics. She was given 1 week supply of antibiotics. She was instructed need to repeat chest x-ray in 1 week. FINAL DIAGNOSES: Right lower lobe infiltrate, community-acquired pneumonia, possible aspiration Altered mental status, likely encephalopathy, resolved Atypical chest pain likely secondary to pleurisy the setting of pneumonia History of drug overdose in the past Positive amphetamine use Microscopic hematuria Vaginal discharge Homelessness DISPOSITION: Patient signed homeless discharge. DISCHARGE MEDICATIONS: Refer to Discharge Medication List. DISCHARGE INSTRUCTIONS: Follow up within a week. I have been assigned to dictate discharge summary on this account, and I was not involved in the patient's management. Catalina Junior NP Jun 20, 2018 11:37
== END 2018-06-19 15:52 | disposition home or self-care (01) | DRG 177 ==
LOC: EDBD 08:07 → EMR 09:06 → 4E 10:21 → EDBEDREQ 10:35
DX: J69.0 Pneumonitis due to inhalation of food and vomit (principal); G92 Toxic encephalopathy; F15.20 Other stimulant dependence, uncomplicated; J44.0 Chronic obstructive pulmonary disease with (acute) lower respiratory infection; R31.21 Asymptomatic microscopic hematuria; Z59.0 Homelessness; N89.8 Other specified noninflammatory disorders of vagina
CPT/HCPCS: 36415; 36600; 71045; 80053; 80061; 80307; 81003; 81025; 82140; 82803; 83036; 83605; 84703; 85007; 85025; 85379; 86592; 86703; 86710; 87040; 87491; 93005; 93970; 94640; 94664; 96365; 96366; 96375; 99285; J3490